=== PATIENT | male | born 1995 | race Caucasian/White ===

== ENCOUNTER 2019-01-06 21:14 | Inpatient (IN) | payer BC ==
[2019-01-06 21:19] VITALS: BMI 25.5
--- NOTE | 2019-01-06 21:20 | PDOC ---
Rapid Medical Evaluation Chief Complaint: Pain Time Seen by Provider: 01/06/19 21:18 Medical Evaluation: 01/06/19 21:18 I have performed a brief in-person evaluation of this patient. The patient presents with a chief complaint of: Sudden onset of RLQ abdominal pain at 6 today, nausea. NO urinary symptoms, no testicular pain. I have ordered the following: CBC, CMP, UA, line, labs The patient will proceed to the ED for further evaluation. Discharge Disposition - Diagnosis Abdominal pain - Referrals - Patient Instructions - Post Discharge Activity
[2019-01-06 22:09] LABS: URINE APPEARANCE CLEAR; URINE BILIRUBIN NEGATIVE (NEGATIVE); URINE COLOR YELLOW; URINE GLUCOSE (UA) NEGATIVE (NEGATIVE); URINE KETONE TRACE (NEGATIVE); URINE LEUK ESTERASE NEGATIVE (NEGATIVE); URINE NITRITE NEGATIVE (NEGATIVE); URINE PROTEIN NEGATIVE (NEGATIVE); URINE UROBILINOGEN 0.2 mg/dL (0.2-1.0)
[2019-01-06 22:10] LABS: BASO % 0.3 % (0-2.0); EOS % 0.8 % (0-4.5); HEMATOCRIT 43.8 % (35.4-49); HEMOGLOBIN 15.6 GM/dL (11.7-16.9); LYMPH % 19.5 % (8-40); MCH 29.5 pg (25.7-33.7); MCHC 35.5 g/dl (32.0-35.9); MEAN CELL VOLUME 83.1 fl (80-96); MEAN PLT VOLUME 8.1 fl (7.5-11.1); MONO % 6.1 % (3.8-10.2); NEUT % 73.3 % (42.8-82.8); PLATELET COUNT 288 K/MM3 (134-434); RBC 5.28 M/mm3 (4.00-5.60); RDW 12.7 % (11.9-15.9); WHITE BLOOD COUNT 14.2 K/mm3 (4.0-10.0)
--- NOTE | 2019-01-06 22:14 | PDOC ---
History of Present Illness - General Chief Complaint: Pain Stated Complaint: RT LOWER ABD PAIN Time Seen by Provider: 01/06/19 21:18 Past History - Past Medical History Allergies/Adverse Reactions: Allergies Allergy/AdvReac Type Severity Reaction Status Date / Time No Known Allergies Allergy Verified 01/06/19 21:19 Home Medications: Ambulatory Orders NK [No Known Home Medication] 01/06/19 COPD: No - Psycho Social/Smoking Cessation Hx Smoking History: Never smoked *Physical Exam - Vital Signs Last Vital Signs Temp Pulse Resp BP Pulse Ox 97.9 F 91 H 18 141/82 100 01/06/19 21:17 01/06/19 21:17 01/06/19 21:17 01/06/19 21:17 01/06/19 21:17 ED Treatment Course - LABORATORY CBC & Chemistry Diagram: 01/06/19 21:41 01/06/19 21:41 - ADDITIONAL ORDERS Additional order review: Laboratory Results 01/06/19 21:41 Urine Color Yellow Urine Appearance Clear Urine pH 7.0 Ur Specific [place] 1.026 Urine Protein Negative Urine Glucose (UA) Negative Urine Ketones Trace H Urine Blood Negative Urine Nitrite Negative Urine Bilirubin Negative Urine Urobilinogen 0.2 Ur Leukocyte Esterase Negative 01/06/19 21:41 RBC 5.28 MCV 83.1 MCHC 35.5 RDW 12.7 MPV 8.1 Neutrophils % 73.3 Lymphocytes % 19.5 Monocytes % 6.1 Eosinophils % 0.8 Basophils % 0.3 Medical Decision Making - Medical Decision Making HPI: 23yo M with no reported PMH presenting with RLQ abdominal pain. Pain is described as "gas" and "bloated" and rated 6/10 at rest and 9/10 upon certain movements. Patient has never had pain like this before. Reporting nausea but no vomiting. Has had lessened po intake today due to low appetite. Last bowel movement was around 6pm and was a normal formed brown stool without blood. Patient took an vjap-rre-myxhecr stomach relief medicine at 7pm with no relief of pain. Denies history of abdominal surgeries. Does not have urinary symptoms, testicular pain, or penile discharge. No fevers, chills, chest pain, or shortness of breath. Meds: none All: none PSH: removal of nasal polyp; hernia surgery as an ROS: Constitutional: no fever, no chills HEENT: no throat pain, no dysphagia Cardiovascular: no chest pain, no palpitations Respiratory: no cough, no shortness of breath Gastrointestinal: +abdominal pain, +nausea Genitourinary: no dysuria, no hematuria Musculoskeletal: no myalgia, no arthralgia Skin: no rash, no itching Neurologic: no headache, no weakness PE: General: Awake, alert, and fully oriented, in no acute distress Head: No signs of trauma Eyes: EOMI, sclera anicteric ENT: Moist mucus membranes Neck: Normal ROM, supple Lungs: Lungs clear, Normal breath sounds Cardio: Regular rhythm, S1 and S2 present Abdomen: Tender to palpation in RLQ. +Mcburney point, Soft, nondistended. + rebound. No guarding, no masses. No CVA tenderness : no genital rash or lesions, no testicular pain, normal cremasteric reflex bilaterally, no inguinal hernia noted Extremities: Normal range of motion, Distal pulses present SKIN: Warm, Dry, normal turgor Neurologic: Cranial nerves II through XII grossly intact. Normal speech ED Course/MDM: DDX including but not limited to appendicitis, constipation, gastroenteritis, gastritis, nephrolithiasis, testicular torsion [facility] 01/06/[facility] 22:14 CBC WBC 14.2 K/mm3 (4.0-10.0) H 01/06/19 21:41 RBC 5.28 M/mm3 (4.00-5.60) 01/06/19 21:41 Hgb 15.6 GM/dL (11.7-16.9) 01/06/19 21:41 Hct 43.8 % (35.4-49) 01/06/19 21:41 MCV 83.1 fl (80-96) 01/06/19 21:41 MCH 29.5 pg (25.7-33.7) 01/06/19 21:41 MCHC 35.5 g/dl (32.0-35.9) 01/06/19 21:41 RDW 12.7 % (11.9-15.9) 01/06/19 21:41 Plt Count 288 K/MM3 (134-434) 01/06/19 21:41 MPV 8.1 fl (7.5-11.1) 01/06/19 21:41 Absolute Neuts (auto) 10.4 K/mm3 (1.5-8.0) H 01/06/19 21:41 Neutrophils % 73.3 % (42.8-82.8) 01/06/19 21:41 Lymphocytes % 19.5 % (8-40) 01/06/19 21:41 Monocytes % 6.1 % (3.8-10.2) 01/06/19 21:41 Eosinophils % 0.8 % (0-4.5) 01/06/19 21:41 Basophils % 0.3 % (0-2.0) 01/06/19 21:41 Nucleated RBC % 0 % (0-0) 01/06/19 21:41 Leukocytosis CMP Sodium 139 mmol/L (136-145) 01/06/19 21:41 Potassium 3.4 mmol/L (3.5-5.1) L 01/06/19 21:41 Chloride 104 mmol/L (98-107) 01/06/19 21:41 Carbon Dioxide 27 mmol/L (21-32) 01/06/19 21:41 Anion Gap 8 MMOL/L (8-16) 01/06/19 21:41 BUN 17.6 mg/dL (7-18) 01/06/19 21:41 Creatinine 1.2 mg/dL (0.55-1.3) 01/06/19 21:41 Est GFR (CKD-EPI)AfAm 98.89 01/06/19 21:41 Est GFR (CKD-EPI)NonAf 85.32 01/06/19 21:41 Random Glucose 99 mg/dL (74-106) 01/06/19 21:41 Calcium 9.3 mg/dL (8.5-10.1) 01/06/19 21:41 Phosphorus 2.4 mg/dL (2.5-4.9) L 01/06/19 21:41 Magnesium 2.1 mg/dL (1.8-2.4) 01/06/19 21:41 Total Bilirubin 0.4 mg/dL (0.2-1) 01/06/19 21:41 AST 11 U/L (15-37) L 01/06/19 21:41 ALT 17 U/L (13-61) 01/06/19 21:41 Alkaline Phosphatase 82 U/L (45-117) 01/06/19 21:41 Total Protein 7.4 g/dl (6.4-8.2) 01/06/19 21:41 Albumin 4.5 g/dl (3.4-5.0) 01/06/19 21:41 Lipase 177 U/L (73-393) 01/06/19 21:41 Electrolytes unremakrable Creatinine normal No Transaminitis Lipase normal 01/06/19 23:14 Call from Imaging double end production grinder. Patient with early appendicitis. TS and Coags ordered Page to on-call surgeon, Dr. Donal Martinez, CT as read by imaging workforce management consultant: "FINDINGS: Lower lung tejada are clear. There are no gallstones identified. Liver, pancrease, spleen, adrenal glands are within normal. There are no renal stones, mass or obstructive uropathy. Abdominal aorta without AAA or dissection. IVC patent. There is no retroperitoneal hemorrhage or pathologic adenopathy. The appendix is edematous, enhancing it with subtle periappendiceal inflammatory changes indicative of early appendicitis. No evidence of bowel obstruction, ascites, abscess, free air or diverticulitis. Bladder grossly within normal There is no pelvic mass or pathologic adenopathy. Spine and bony pelvis without fracture or suspicious lesion. IMPRESSION: Early appendicitis without abscess or pneumoperitoneum" 01/07/19 00:[address] Ruggiero who wants patient to be admitted. To be evaluated tomorrow. We will start zosyn. Does not require cxr or ekg. 01/07/19 00:07 Patient states his pain is currently controlled NPO MB sent to hospitalist team 01/07/19 00:15 Awaiting callback Patient signed out to Dr. Alexander and night team 01/07/19 01:14 Discharge - Discharge Information Problems reviewed: Yes Clinical Impression/Diagnosis: Appendicitis Qualifiers: Appendicitis type: unspecified Qualified Code(s): K37 - Unspecified appendicitis Condition: Guarded - Admission Yes - Follow up/Referral - Patient Discharge Instructions - Post Discharge Activity
[2019-01-06] MEDS ORDERED: SODIUM CHLORIDE 1,000 ML IV STA (22:33)
[2019-01-06] MEDS ORDERED: ONDANSETRON 4 MG/2 ML VIAL IVPUSH ONE (22:33)
[2019-01-06] MEDS ORDERED: ACETAMINOPHEN 1000 MG/100 ML VIAL (NON FORMULARY) IVPB ONE (22:33)
--- NOTE | 2019-01-06 22:33 | PDOC ---
Attending Attestation - Resident Resident Name: Joanna Gill - ED Attending Attestation I have performed the following: I have examined & evaluated the patient, The case was reviewed & discussed with the resident, I agree w/resident's findings & plan - HPI HPI: 01/07/19 00:00 Pt comes with diffuse abd pain; pain is radiating and moving to the RLQ. - Physicial Exam PE: 01/07/19 00:00 Agree with resident exam. Pt has RLQ pain with rebound and guarding We are concerned about appendicitis. - Medical Decision Making 01/07/19 00:06 Patient Name: RONY CRUZ THIS IS A PRELIMINARY REPORT FROM IMAGING COMPUTER HARDWARE TECHNICIAN DATE OF SERVICE: 2019-01-06 23:16:04 IMAGES: [id number] EXAM: CT ABDOMEN AND PELVIS WITH IV CONTRAST. REASON FOR EXAM: Pain RLQ COMPARISON: None FINDINGS: Lower lung tej[place] are clear. There are no gallstones identified. Liver, pancrease, spleen, adrenal glands are within normal. There are no renal stones, mass or obstructive uropathy. Abdominal aorta without AAA or dissection. IVC patent. There is no retroperitoneal hemorrhage or pathologic adenopathy. The appendix is edematous, enhancing it with subtle periappendiceal inflammatory changes indicative of early appendicitis. No evidence of bowel obstruction, ascites, abscess, free air or diverticulitis. Bladder grossly within normal There is no pelvic mass or pathologic adenopathy. Spine and bony pelvis without fracture or suspicious lesion. IMPRESSION: Early appendicitis without abscess or pneumoperitoneum. Surgery weed control inspector with be called and pt will be admitted to the hospitalist. We will start antibiotics.
[2019-01-06 22:37] LABS: ALBUMIN 4.5 g/dl (3.4-5.0); BILIRUBIN,TOTAL 0.4 mg/dL (0.2-1); BLOOD UREA NITROGEN 17.6 mg/dL (7-18); CALCIUM 9.3 mg/dL (8.5-10.1); CREATININE 1.2 mg/dL (0.55-1.3); MAGNESIUM 2.1 mg/dL (1.8-2.4); PHOSPHOROUS 2.4 mg/dL (2.5-4.9); POTASSIUM 3.4 mmol/L (3.5-5.1); TOT PROT 7.4 g/dl (6.4-8.2)
[2019-01-06] MEDS ORDERED: ACETAMINOPHEN INJECTION 100 ML IVPB ONE (22:53)
[2019-01-06] MEDS ORDERED: ONDANSETRON 4 MG/2 ML VIAL ONE (22:53)
[2019-01-07] MEDS ORDERED: PIPERACILLIN/TAZOB 4.5 GM 4.5 GM in DEXTROSE 5%-WATER 100 ML IVPB ONE (00:08)
[2019-01-07] MEDS ORDERED: PIPERACILLIN/TAZOB 4.5 GM 4.5 GM/100 ML BAG IVPB ONE (00:31)
--- NOTE | 2019-01-07 00:40 | PN ---
Teaching Attending Note Name of Resident: José Luis Pardo ATTENDING PHYSICIAN STATEMENT I saw and evaluated the patient. I reviewed the resident's note and discussed the case with the resident. I agree with the resident's findings and plan as documented. SUBJECTIVE: 23yo man, previously healthy presents with a chief complaint of sudden onset of RLQ abdominal pain at 6pm 01/06, nausea. No urinary symptoms. S/p zosyn, abd/ pelvis ct scan in er. OBJECTIVE: Last Vital Signs Temp Pulse Resp BP Pulse Ox 97.9 F 91 H 18 141/82 100 01/06/19 21:17 01/06/19 21:17 01/06/19 21:17 01/06/19 21:17 01/06/19 21:17 gen -nontoxic heent -moist mucous membranes neck supple cv s1+s2+rrr chest clear abd- soft, bs+ nondistenderd rlq tenderness, no rebound tenderness ext - no pedal edema Abnormal Lab Results 01/06/19 01/06/19 01/06/19 21:41 21:41 21:41 WBC 14.2 H Absolute Neuts (auto) 10.4 H Potassium 3.4 L Phosphorus 2.4 L AST 11 L Urine Ketones Trace H imaging reviewed EXAM: CT ABDOMEN AND PELVIS WITH IV CONTRAST. REASON FOR EXAM: Pain RLQ COMPARISON: None FINDINGS: Lower lung tej[place] are clear. There are no gallstones identified. Liver, pancrease, spleen, adrenal glands are within normal. There are no renal stones, mass or obstructive uropathy. Abdominal aorta without AAA or dissection. IVC patent. There is no retroperitoneal hemorrhage or pathologic adenopathy. The appendix is edematous, enhancing it with subtle periappendiceal inflammatory changes indicative of early appendicitis. No evidence of bowel obstruction, ascites, abscess, free air or diverticulitis. Bladder grossly within normal There is no pelvic mass or pathologic adenopathy. Spine and bony pelvis without fracture or suspicious lesion. IMPRESSION: Early appendicitis without abscess or pneumoperitoneum. ASSESSMENT AND PLAN: Sepsis secondary to early appendicitis without abscess or pneumoperitoneum, leukocytosis+ borderline tachy -med/surg -npo -ekg -iv fluid hydration -ceftriaxone/flagyl -morphine for pain control -zofran for nausea or vomiting -surgery consult -pt/ptt, type and cross -supplement phosphate and K+ -dvt ppx
[2019-01-07 00:41] LABS: INR 1.17 (0.83-1.09); PROTHROMBIN TIME (PATIENT) 13.8 SEC (9.7-13.0)
[2019-01-07] MEDS ORDERED: MORPHINE SULFATE 2 MG/ML VIAL IVPUSH PRN (02:37)
[2019-01-07] MEDS ORDERED: ACETAMINOPHEN 325 MG TABLET (FP) PO PRN ×2 (02:42→10:49)
[2019-01-07] MEDS ORDERED: DEXTROSE 5%-NORMAL SALINE 1,000 ML IV SCH (02:45)
[2019-01-07] MEDS ORDERED: PIPERACILLIN/TAZOBACTAM 3.375 GM VIAL IVPB ONE ×3 (04:02→18:00)
[2019-01-07] MEDS ORDERED: DEXTROSE 5%-WATER - 50 ML IVPB ONE ×3 (04:03→18:00)
[2019-01-07] MEDS: PIPERACILLIN/TAZOB 3.375 GM 3.375 GM in DEXTROSE 5%-WATER - 50 ML IVPB SCH ×4 (04:19→18:59)
--- NOTE | 2019-01-07 07:46 | HP ---
CHIEF COMPLAINT: RLQ pain PCP: HISTORY OF PRESENT ILLNESS: 23M w/ no signifcant PMH presents to [facility] for complaint of new-onset RLQ pain occuring at ~18:30 while watching the [employer]. Pain started as a vague pressure then became stabbing and crampy. Had nausea, no vomiting. Low appetite throughout day. Endorse subjective fever. No diarrhea ER course was notable for: (1) HR 91 (2) WBC 14.2 (3) CT A/P w/ edematous appendix, periappendiceal inflammation (4) ofirmev + zofran (5) Surg([facility]) consult (6) zosyn Recent Travel: none PAST MEDICAL HISTORY: none PAST SURGICAL HISTORY: nasal polyp removal, infant IHR Social History: Smoking: denies Alcohol: social Drugs: denies Allergies No Known Allergies Allergy (Verified 01/06/19 21:19) HOME MEDICATIONS: Home Medications Medication Instructions Recorded NK [No Known Home Medication] 01/06/19 REVIEW OF SYSTEMS CONSTITUTIONAL: fever, anorexia Absent: chills, diaphoresis, generalized weakness, malaise, weight change HEENT: Absent: rhinorrhea, nasal congestion, throat pain, throat swelling, difficulty swallowing, mouth swelling, visual changes CARDIOVASCULAR: Absent: chest pain, syncope, palpitations, irregular heart rate, lightheadedness , peripheral edema RESPIRATORY: Absent: cough, shortness of breath, dyspnea with exertion, orthopnea, wheezing, stridor, hemoptysis GASTROINTESTINAL: abd pain, nausea Absent: abdominal distension, vomiting, diarrhea, constipation, melena, hematochezia GENITOURINARY: Absent: dysuria, frequency, urgency, hesitancy, hematuria, flank pain, genital pain MUSCULOSKELETAL: Absent: myalgia, arthralgia, joint swelling, back pain, neck pain SKIN: Absent: rash, itching, pallor PHYSICAL EXAMINATION Vital Signs - 24 hr 01/06/19 01/07/19 01/07/19 21:17 00:17 01:00 Temperature 97.9 F 98.2 F Pulse Rate 91 H 75 Pulse Rate [ Left Radial] Respiratory 18 20 Rate Blood Pressure 141/82 137/72 Blood Pressure [Left Arm] O2 Sat by Pulse 100 100 100 Oximetry (%) 01/07/19 01:05 Temperature 98.0 F Pulse Rate Pulse Rate [ 86 Left Radial] Respiratory 20 Rate Blood Pressure Blood Pressure 138/79 [Left Arm] O2 Sat by Pulse 100 Oximetry (%) GENERAL: Awake, alert, and fully oriented, in no acute distress. HEAD: NC/AT EYES: sclera anicteric, conjunctiva clear EARS, NOSE, THROAT: Ears normal, nares patent. Moist mucous membranes. NECK: Normal range of motion, supple without lymphadenopathy, JVD, or masses. LUNGS: Breath sounds equal, clear to auscultation bilaterally. No wheezes, and no crackles. No accessory muscle use. HEART: Regular rate and rhythm, normal S1 and S2 without murmur, rub or gallop. ABDOMEN: Soft, ND, +McBurney's, neg Rovsing, neg rebound MUSCULOSKELETAL: Normal range of motion at all joints. No bony deformities or tenderness. UPPER EXTREMITIES: 2+ pulses, warm, well-perfused. No cyanosis. LOWER EXTREMITIES: 2+ pulses, warm, well-perfused. No calf tenderness. No peripheral edema. NEUROLOGICAL: Normal speech. PSYCHIATRIC: Cooperative. Good eye contact. Appropriate mood and affect. Laboratory Results - last 24 hr 01/06/19 01/06/19 01/06/19 21:41 21:41 21:41 WBC 14.2 H RBC 5.28 Hgb 15.6 Hct 43.8 MCV 83.1 MCH 29.5 MCHC 35.5 RDW 12.7 Plt Count 288 MPV 8.1 Absolute Neuts (auto) 10.4 H Neutrophils % 73.3 Lymphocytes % 19.5 Monocytes % 6.1 Eosinophils % 0.8 Basophils % 0.3 Nucleated RBC % 0 PT with INR INR PTT (Actin FS) Sodium 139 Potassium 3.4 L Chloride 104 Carbon Dioxide 27 Anion Gap 8 BUN 17.6 Creatinine 1.2 Est GFR (CKD-EPI)AfAm 98.89 Est GFR (CKD-EPI)NonAf 85.32 Random Glucose 99 Calcium 9.3 Phosphorus 2.4 L Magnesium 2.1 Total Bilirubin 0.4 AST 11 L ALT 17 Alkaline Phosphatase 82 Total Protein 7.4 Albumin 4.5 Lipase 177 Urine Color Yellow Urine Appearance Clear Urine pH 7.0 Ur Specific [place] 1.026 Urine Protein Negative Urine Glucose (UA) Negative Urine Ketones Trace H Urine Blood Negative Urine Nitrite Negative Urine Bilirubin Negative Urine Urobilinogen 0.2 Ur Leukocyte Esterase Negative Blood Type Antibody Screen 1001/07/19 01/07/19 00:03 00:03 00:03 WBC RBC Hgb Hct MCV MCH MCHC RDW Plt Count MPV Absolute Neuts (auto) Neutrophils % Lymphocytes % Monocytes % Eosinophils % Basophils % Nucleated RBC % PT with INR 13.80 H INR 1.17 H PTT (Actin FS) 33.6 Sodium Potassium Chloride Carbon Dioxide Anion Gap BUN Creatinine Est GFR (CKD-EPI)AfAm Est GFR (CKD-EPI)NonAf Random Glucose Calcium Phosphorus Magnesium Total Bilirubin AST ALT Alkaline Phosphatase Total Protein Albumin Lipase Urine Color Urine Appearance Urine pH Ur Specific [place] Urine Protein Urine Glucose (UA) Urine Ketones Urine Blood Urine Nitrite Urine Bilirubin Urine Urobilinogen Ur Leukocyte Esterase Blood Type B POSITIVE Antibody Screen Negative ASSESSMENT/PLAN: 23M w/ no significant PMH present with severe RLQ abd pain, CT findings suggestive of an early appendicitis. #sepsis 2/2 appendicitis > CT A/P: edematous appendix, periappendiceal inflammation > sepsis: HR 91, WBC 14.2 - NPO - mIVF - zosyn - T&S pending - coag pending - Consult Surg([facility]) FEN: - NPO - D5NS @125 DVT prophylaxis -SCDs Family Medical History Family Hx Cancer: Mother (liver cancer) Family Hx Cardiac Disorders: Grandfather (paternal) (HTN) Visit type - Emergency Visit Emergency Visit: Yes ED Registration Date: 01/07/19 Care time: The patient presented to the Emergency Department on the above date and was hospitalized for further evaluation of their emergent condition. - New Patient This patient is new to me today: Yes Date on this admission: 01/07/19 - Critical Care Critical Care patient: No ATTENDING PHYSICIAN STATEMENT I saw and evaluated the patient. I reviewed the resident's note and discussed the case with the resident. I agree with the resident's findings and plan as documented. SUBJECTIVE: OBJECTIVE: ASSESSMENT AND PLAN:
[2019-01-07 08:00] LABS: INR 1.22 (0.83-1.09); PROTHROMBIN TIME (PATIENT) 14.4 SEC (9.7-13.0)
[2019-01-07 08:03] LABS: ACTIVATED PTT 34.4 SECONDS (25.2-36.5)
[2019-01-07] MEDS ORDERED: BUPIVACAINE HCL/PF 0.5% (5 MG/ML) 30 ML VIAL IJ ONE (09:13)
[2019-01-07] MEDS ORDERED: ONDANSETRON 4 MG/2 ML VIAL ONE (09:30)
[2019-01-07] MEDS ORDERED: LIDOCAINE HCL/PF 2% SDV 5ML VIAL ONE (09:30)
[2019-01-07] MEDS ORDERED: DEXAMETHASONE SOD PHOSPHATE 4 MG/1 ML VIAL ONE (09:30)
[2019-01-07] MEDS ORDERED: KETOROLAC TROMETHAMINE 30 MG/1 ML VIAL ONE (09:30)
[2019-01-07] MEDS ORDERED: PROPOFOL 20 ML ONE ×3 (09:31)
[2019-01-07] MEDS ORDERED: ROCURONIUM BROMIDE 50 MG/5 ML SYRINGE ONE (09:31)
[2019-01-07] MEDS ORDERED: SUCCINYLCHOLINE CHLORIDE 200 MG/10 ML SYRINGE ONE (09:31)
[2019-01-07] MEDS ORDERED: fentaNYL CITRATE 250 MCG/5 ML VIAL ONE (09:31)
[2019-01-07] MEDS ORDERED: NEOSTIGMINE METHYLSULFATE 0.5 MG/1 ML - 10 ML MDV ONE (10:17)
[2019-01-07] MEDS ORDERED: GLYCOPYRROLATE 0.2 MG/1 ML VIAL ONE ×2 (10:17)
--- NOTE | 2019-01-07 10:17 | CONS ---
DATE OF CONSULTATION: 01/07/2019 REASON FOR CONSULTATION: Acute appendicitis. BRIEF HISTORY: This is a 23-year-old male who presented to [facility] with 1-day history of lower abdominal pain. He had a mildly elevated white blood cell count and a CAT scan consistent with acute appendicitis. He was started on intravenous antibiotics, admitted to the hospital, and request was made for a surgical evaluation. PAST MEDICAL HISTORY: Negative. PAST SURGICAL HISTORY: Nil. SOCIAL HISTORY: Negative for alcohol. Negative for tobacco. FAMILY HISTORY: Negative for malignancy in the immediate family. ALLERGIES: He has no known drug allergies. REVIEW OF SYSTEMS: General: Denies fatigue or malaise. Cardiac: Denies chest pain or palpitations. Respiratory: Denies shortness of breath or wheeze. Gastrointestinal: As in HPI. Denies nausea, denies vomiting, denies diarrhea, denies blood in his stool. Genitourinary: Denies dysuria. Musculoskeletal: Denies joint pain. Psychiatric: Denies anxiety, depression, or hearing voices. PHYSICAL EXAMINATION: General: This is a well-developed, well-nourished 23-year-old male in no distress. Vital Signs: He is afebrile. HEENT: His head is normocephalic. His sclerae anicteric. Neck: Supple. Chest: Clear. Abdomen: Soft. He has localized right lower quadrant tenderness with rebound. He has no surgical scars, although he states he has a history of an inguinal hernia as a child. Extremities: No edema. On review of his laboratory, his white blood cell count is 14,000. His chemistries show a low potassium of 3.4, phosphorous of 2.4. Review of his imaging, he has a CAT scan of his abdomen and pelvis, which per [facility] reading is early appendicitis as relayed to me by the emergency room physician. Brief history, this is a 23-year-old male with right lower quadrant pain, peritoneal findings right lower quadrant, leukocytosis, and CAT scan evidence of acute appendicitis/early appendicitis. Clinically, this is acute appendicitis. I agree with admission. I agree with Zosyn antibiotic to cover E. coli and other gram negative as well as anerobic elvira and enteric elvira. Patient has been offered medical management versus surgery and prefers surgery. Risks and benefits of surgery have been explained to the patient in detail. These are including, but not limited to, the possibility of conversion to open, the possibility of injury to viscera or bladder, the possibility of blood loss requiring blood transfusion, the possibility of future obstruction, possibility of future hernia, possibility of staple line dehiscence, possibility of requiring a partial cholecystectomy plus a multitude of medical risks, including, but not limited to, cardiac, neurologic, pulmonary, and vascular complications, even . Patient understands these risks and is agreeable to surgery. DO KAREN TAVAREZ/[id number]
--- NOTE | 2019-01-07 10:39 | OP ---
Operative Note - Note: Operative Date: 01/07/19 Pre-Operative Diagnosis: acute appendicitis Operation: laparoscopic appendectomy, lavage Findings: thickened, inflamed, non perforated appendix Post-Operative Diagnosis: Same as Pre-op Surgeon: Paolo Ruggiero Anesthesiologist/CLEANING TECHNICIAN: Paolo Kent Specimens Removed: appendix Estimated Blood Loss (mls): 10 Operative Report Dictated: Yes
[2019-01-07] MEDS ORDERED: morphine SULFATE 4 MG/ML VIAL IVPB PRN (10:40)
[2019-01-07] MEDS ORDERED: ONDANSETRON 4 MG/2 ML VIAL IVPUSH PRN ×2 (10:40→10:41)
[2019-01-07] MEDS ORDERED: PROMETHAZINE HCL 25 MG/1 ML VIAL IVPB PRN (10:41)
[2019-01-07] MEDS ORDERED: oxyCODONE HCL 5 MG TABLET PO PRN (10:41)
[2019-01-07] MEDS: DEXTROSE 5%-NORMAL SALINE 1,000 ML IV SCH ×2 (11:30→19:03)
--- NOTE | 2019-01-07 13:46 | PN ---
Physical Exam: SUBJECTIVE: Patient seen and examined at the bedside. denies any discomfort. s/ p appendectomy. only verbalized intermittent soreness. tolerating diet. OBJECTIVE: Patient is a 23 year old male with no pmhx who presented to [facility] with acute RLQ abodminal pain, found to have an acute appendicitis and is now s/p appendectomy. Vital Signs Period Temp Pulse Resp BP Sys/Pitts Pulse Ox Last 24 Hr 97.9 F-98.6 F 63-96 12-20 111-141/53-82 95-100 GENERAL: The patient is awake, alert, and fully oriented, in no acute distress. HEAD: Normal with no signs of trauma. EYES: PERRL, extraocular movements intact, sclera anicteric, conjunctiva clear. No ptosis. ENT: Ears normal, nares patent, oropharynx clear without exudates, moist mucous membranes. NECK: Trachea midline, full range of motion, supple. LUNGS: Breath sounds equal, clear to auscultation bilaterally, no wheezes, no crackles, no accessory muscle use. HEART: Regular rate and rhythm, S1, S2 without murmur, rub or gallop. ABDOMEN: surgical incisions c/d/i, soft abdomen, sore only, tolerating diet. EXTREMITIES: no edema. NEUROLOGICAL: Normal speech, gait not observed. PSYCH: Normal mood, normal affect. Laboratory Results - last 24 hr 01/06/19 01/06/19 01/06/19 21:41 21:41 21:41 WBC 14.2 H RBC 5.28 Hgb 15.6 Hct 43.8 MCV 83.1 MCH 29.5 MCHC 35.5 RDW 12.7 Plt Count 288 MPV 8.1 Absolute Neuts (auto) 10.4 H Neutrophils % 73.3 Lymphocytes % 19.5 Monocytes % 6.1 Eosinophils % 0.8 Basophils % 0.3 Nucleated RBC % 0 PT with INR INR PTT (Actin FS) Sodium 139 Potassium 3.4 L Chloride 104 Carbon Dioxide 27 Anion Gap 8 BUN 17.6 Creatinine 1.2 Est GFR (CKD-EPI)AfAm 98.89 Est GFR (CKD-EPI)NonAf 85.32 Random Glucose 99 Calcium 9.3 Phosphorus 2.4 L Magnesium 2.1 Total Bilirubin 0.4 AST 11 L ALT 17 Alkaline Phosphatase 82 Total Protein 7.4 Albumin 4.5 Lipase 177 Urine Color Yellow Urine Appearance Clear Urine pH 7.0 Ur Specific [place] 1.026 Urine Protein Negative Urine Glucose (UA) Negative Urine Ketones Trace H Urine Blood Negative Urine Nitrite Negative Urine Bilirubin Negative Urine Urobilinogen 0.2 Ur Leukocyte Esterase Negative Blood Type Antibody Screen 01/06/19 01/07/19 01/07/19 21:41 00:03 00:03 WBC RBC Hgb Hct MCV MCH MCHC RDW Plt Count MPV Absolute Neuts (auto) Neutrophils % Lymphocytes % Monocytes % Eosinophils % Basophils % Nucleated RBC % PT with INR INR PTT (Actin FS) 33.6 Sodium Potassium Chloride Carbon Dioxide Anion Gap BUN Creatinine Est GFR (CKD-EPI)AfAm Est GFR (CKD-EPI)NonAf Random Glucose Calcium Phosphorus Magnesium Total Bilirubin AST ALT Alkaline Phosphatase Total Protein Albumin Lipase Urine Color Urine Appearance Urine pH Ur Specific [place] Urine Protein Urine Glucose (UA) Urine Ketones Urine Blood Urine Nitrite Urine Bilirubin Urine Urobilinogen Ur Leukocyte Esterase Blood Type B POSITIVE B POSITIVE Antibody Screen Negative 01/07/19 01/07/19 00:03 06:00 WBC RBC Hgb Hct MCV MCH MCHC RDW Plt Count MPV Absolute Neuts (auto) Neutrophils % Lymphocytes % Monocytes % Eosinophils % Basophils % Nucleated RBC % PT with INR 13.80 H 14.40 H INR 1.17 H 1.22 H PTT (Actin FS) 34.4 Sodium Potassium Chloride Carbon Dioxide Anion Gap BUN Creatinine Est GFR (CKD-EPI)AfAm Est GFR (CKD-EPI)NonAf Random Glucose Calcium Phosphorus Magnesium Total Bilirubin AST ALT Alkaline Phosphatase Total Protein Albumin Lipase Urine Color Urine Appearance Urine pH Ur Specific [place] Urine Protein Urine Glucose (UA) Urine Ketones Urine Blood Urine Nitrite Urine Bilirubin Urine Urobilinogen Ur Leukocyte Esterase Blood Type Antibody Screen Active Medications Generic Name Dose Route Start Last Admin Trade Name Freq PRN Reason Stop Dose Admin Acetaminophen 650 mg 01/07/19 10:49 Tylenol - PO Q4H PRN PAIN LEVEL 1-5 Enoxaparin Sodium 40 mg 01/08/19 10:00 Lovenox - SQ DAILY RYNE Fentanyl 50 mcg 01/07/19 10:41 01/07/19 10:55 Sublimaze Injection - IVPUSH 50 mcg [id number] PRN Administration PAIN-PACU ORDER X 4 DOSES ONLY Dextrose/Sodium Chloride 1,000 mls @ 125 mls/hr 01/07/19 10:49 01/07/19 11:30 D5-Ns - IV 0 mls ASDIR RYNE Administration Piperacillin Sod/Tazobactam 50 mls @ 100 mls/hr 01/07/19 21:00 Sod 3.375 gm/ Dextrose IVPB Q6H-IV RYNE Protocol Piperacillin Sod/Tazobactam 50 mls @ 100 mls/hr 01/07/19 15:00 Sod 3.375 gm/ Dextrose IVPB 01/07/19 15:29 Q6H-IV RYNE Protocol Morphine Sulfate 8 mg 01/07/19 10:40 Morphine Sulfate IVPB Q3H PRN PAIN LEVEL 7 - 10 Ondansetron HCl 4 mg 01/07/19 10:40 Zofran Injection IVPUSH Q6H PRN NAUSEA Oxycodone HCl 7.5 mg 01/07/19 10:40 Roxicodone - PO Q4H PRN PAIN LEVEL 4 - 6 Oxycodone HCl 10 mg 01/07/19 10:41 Roxicodone - PO 01/08/19 10:40 Q4H PRN PAIN LEVEL 6-10 Pantoprazole Sodium 40 mg 01/08/19 10:00 Protonix Iv IVPUSH DAILY RYNE Promethazine HCl 12.5 mg 01/07/19 10:41 Phenergan Injection - IVPB Q6H PRN NAUSEA-FOR RESCUE AFTER 15 MIN ASSESSMENT/PLAN: Problem List - Problems (1) Appendicitis Assessment/Plan: patient is s/p laparoscopic appendectomy, lavage. thickened inflamed no perforated appendix on zosyn post surgical care: early ambulation, diet, pain management, incentive spirometer d/c once cleared by surgery Code(s): K37 - UNSPECIFIED APPENDICITIS Qualifiers: Appendicitis type: unspecified Qualified Code(s): K37 - Unspecified appendicitis (2) Leukocytosis Assessment/Plan: wbc 14.2. on zosyn. id following. Code(s): D72.829 - ELEVATED WHITE BLOOD CELL COUNT, UNSPECIFIED (3) Prophylactic measure Assessment/Plan: post surgery care Code(s): Z29.9 - ENCOUNTER FOR PROPHYLACTIC MEASURES, UNSPECIFIED Visit type - Emergency Visit Emergency Visit: Yes ED Registration Date: 01/07/19 Care time: The patient presented to the Emergency Department on the above date and was hospitalized for further evaluation of their emergent condition. - New Patient This patient is new to me today: Yes Date on this admission: 01/07/19 - Critical Care Critical Care patient: No - Discharge Referral Referred to [facility] Med P.C.: No
[2019-01-07] MEDS: oxyCODONE HCL 5 MG TABLET PO PRN ×2 (14:18→21:32)
[2019-01-07] MEDS ORDERED: PIPERACILLIN/TAZOB 3.375 GM 3.375 GM in DEXTROSE 5%-WATER - 50 ML IVPB SCH ×2 (15:00→21:00)
[2019-01-07] MEDS ORDERED: PT OWN MED DRAWER 7, Y5N ONE (21:13)
[2019-01-08] MEDS ORDERED: PIPERACILLIN/TAZOBACTAM 3.375 GM VIAL IVPB ONE ×2 (00:57→10:23)
[2019-01-08] MEDS ORDERED: DEXTROSE 5%-WATER - 50 ML IVPB ONE ×2 (00:57→10:24)
[2019-01-08] MEDS: PIPERACILLIN/TAZOB 3.375 GM 3.375 GM in DEXTROSE 5%-WATER - 50 ML IVPB SCH ×2 (01:07→10:29)
--- NOTE | 2019-01-08 09:59 | PN ---
Progress Note (short form) - Note Progress Note: Anesthesiologist post op note, POD#1, S/P Acute, Lap appendectomy under GA. Pat seen and examined. VSS. Ambulating. C/O sore throat. Reassured. No apparent post anesthesia complications.
[2019-01-08] MEDS ORDERED: PANTOPRAZOLE SODIUM 40 MG VIAL IVPUSH SCH (10:00)
[2019-01-08] MEDS ORDERED: ENOXAPARIN NA (PORCINE) 40 MG/0.4 ML DISP.SYRIN SQ SCH (10:00)
--- NOTE | 2019-01-08 10:02 | CON.ID ---
Consult Consult Specialty:: infectious diseases Referred by:: Imani Reason for Consultation:: ac appendicitis - History of Present Illness Chief Complaint: abd pain History of Present Illness: 23M w/ no signifcant PMH was admitted for RLQ pain occuring at ~18:30 while watching the [employer]. Pain started as a vague pressure then became stabbing and crampy. Had nausea, no vomiting. Low appetite throughout day. Endorse subjective fever. No diarrhea patient was worked up and found to ahve appendicitis. surgery saw the patient and was taken to the or and patient underwent appendectomy - History Source History Provided By: Patient Limitations to Obtaining History: No Limitations - Smoking History Smoking history: Never smoked Home Medications - Allergies Allergies/Adverse Reactions: Allergies Allergy/AdvReac Type Severity Reaction Status Date / Time No Known Allergies Allergy Verified 01/06/19 21:19 - Home Medications Home Medications: Ambulatory Orders NK [No Known Home Medication] 01/06/19 Review of Systems - Review of Systems Constitutional: reports: No Symptoms Eyes: reports: No Symptoms HENT: reports: No Symptoms Neck: reports: No Symptoms Cardiovascular: reports: No Symptoms Respiratory: reports: No Symptoms Gastrointestinal: reports: Abdominal Pain Genitourinary: reports: No Symptoms Musculoskeletal: reports: No Symptoms Integumentary: reports: No Symptoms Neurological: reports: No Symptoms Endocrine: reports: No Symptoms Hematology/Lymphatic: reports: No Symptoms Psychiatric: reports: No Symptoms Physical Exam Vital Signs: Vital Signs Temperature 98.2 F 01/08/19 06:00 Pulse Rate 76 01/08/19 06:00 Respiratory Rate 20 01/08/19 06:00 Blood Pressure 124/76 01/08/19 06:00 O2 Sat by Pulse Oximetry (%) 99 01/07/19 21:00 Constitutional: Yes: Well Nourished, No Distress, Calm Eyes: Yes: Conjunctiva Clear Neck: Yes: Supple, Trachea Midline Cardiovascular: Yes: Regular Rate and Rhythm Respiratory: Yes: Regular, CTA Bilaterally Gastrointestinal: Yes: Soft, Hypoactive Bowel Sounds Musculoskeletal: Yes: WNL Extremities: Yes: WNL Neurological: Yes: Alert, Oriented Psychiatric: Yes: Alert, Oriented Labs: CBC, BMP 01/06/19 21:41 01/06/19 21:41 Assessment/Plan ASSESSMENT/PLAN: Problem List - Problems (1) Appendicitis Code(s): K37 - UNSPECIFIED APPENDICITIS Qualifiers: Appendicitis type: unspecified Qualified Code(s): K37 - Unspecified appendicitis (2) Leukocytosis Code(s): D72.829 - ELEVATED WHITE BLOOD CELL COUNT, UNSPECIFIED plan doing well no issues patient tolerating diet if surgery clears patient does not need abx
[2019-01-08 10:39] LABS: BASO % 0.5 % (0-2.0); EOS % 0.6 % (0-4.5); HEMATOCRIT 41.5 % (35.4-49); HEMOGLOBIN 14.1 GM/dL (11.7-16.9); LYMPH % 24.3 % (8-40); MCH 29.2 pg (25.7-33.7); MCHC 34.1 g/dl (32.0-35.9); MEAN CELL VOLUME 85.7 fl (80-96); MEAN PLT VOLUME 8.6 fl (7.5-11.1); MONO % 8.5 % (3.8-10.2); NEUT % 66.1 % (42.8-82.8); PLATELET COUNT 245 K/MM3 (134-434); RBC 4.84 M/mm3 (4.00-5.60); RDW 12.7 % (11.9-15.9); WHITE BLOOD COUNT 7.6 K/mm3 (4.0-10.0)
[2019-01-08 11:13] LABS: ALBUMIN 3.5 g/dl (3.4-5.0); BILIRUBIN,TOTAL 0.5 mg/dL (0.2-1); BLOOD UREA NITROGEN 7.4 mg/dL (7-18); CALCIUM 9.1 mg/dL (8.5-10.1); CREATININE 1.1 mg/dL (0.55-1.3); POTASSIUM 3.8 mmol/L (3.5-5.1); TOT PROT 6.2 g/dl (6.4-8.2)
--- NOTE | 2019-01-08 12:33 | DS ---
Physical Exam: SUBJECTIVE: Patient seen and examined at the bedside. tolerating diet. had one episode of nausea yesterday, now resolved. had egg sandwich family brought in from home, and he ate it without any nausea. OBJECTIVE: discharge home wbc stable patient to f/u outpatient with surgery Patient is a 23 year old male with no pmhx who presented to [facility] with acute RLQ abodminal pain, found to have an acute appendicitis and is now s/p appendectomy. Vital Signs Period Temp Pulse Resp BP Sys/Pitts Pulse Ox Last 24 Hr 97.5 F-98.6 F 75-88 18-20 105-139/47-76 99 PHYSICAL EXAM GENERAL: The patient is awake, alert, and fully oriented, in no acute distress. HEAD: Normal with no signs of trauma. EYES: PERRL, extraocular movements intact, sclera anicteric, conjunctiva clear. No ptosis. ENT: Ears normal, nares patent, oropharynx clear without exudates, moist mucous membranes. NECK: Trachea midline, full range of motion, supple. LUNGS: Breath sounds equal, clear to auscultation bilaterally, no wheezes, no crackles, no accessory muscle use. HEART: Regular rate and rhythm, S1, S2 without murmur, rub or gallop. ABDOMEN: surgical incisions c/d/i, soft abdomen, sore only, tolerating diet. EXTREMITIES: no edema. NEUROLOGICAL: Normal speech, gait not observed. PSYCH: Normal mood, normal affect. LABS Laboratory Results - last 24 hr 01/08/19 01/08/19 10:20 10:20 WBC 7.6 RBC 4.84 Hgb 14.1 Hct 41.5 MCV 85.7 MCH 29.2 MCHC 34.1 RDW 12.7 Plt Count 245 MPV 8.6 Absolute Neuts (auto) 5.0 Neutrophils % 66.1 Lymphocytes % 24.3 D Monocytes % 8.5 Eosinophils % 0.6 Basophils % 0.5 Nucleated RBC % 0 Sodium 144 Potassium 3.8 Chloride 108 H Carbon Dioxide 29 Anion Gap 7 L BUN 7.4 Creatinine 1.1 Est GFR (CKD-EPI)AfAm 109.86 Est GFR (CKD-EPI)NonAf 94.79 Random Glucose 85 Calcium 9.1 Magnesium 2.0 Total Bilirubin 0.5 AST 35 ALT 61 Alkaline Phosphatase 71 Total Protein 6.2 L Albumin 3.5 HOSPITAL COURSE: Date of Admission:01/07/19 Date of Discharge: 01/08/19 Minutes to complete discharge: 45 Discharge Summary Problems reviewed: Yes Reason For Visit: APPENDICITIS Current Active Problems Appendicitis (Acute) Leukocytosis (Acute) Prophylactic measure (Acute) Condition: Stable - Instructions Diet, Activity, Other Instructions: Post Operative Instructions Physical activity Resume your normal everyday activity as tolerated no heavy lifting or exercise until seen by your surgeon. You may walk unlimited amounts of and climb stairs. You may resume driving the car when you feel safe and comfortable behind the wheel. Wound care If you have a bandage, leave it on, and keep dry for 48 - 72 hours. After that time discard the outer bandage. If there are tapes on the skin under the outer bandage, leave them in place. They will peel off in the next 7 to 10 days. Do Not peel them off. You may shower 2 days after surgery. If there are tapes present on the skin, they can get wet. Diet There are no dietary restrictions. Eat healthy, high-fiber foods. Drink 6 to 8 glasses of liquid each day. This will assist in keeping your bowels are regular. Pain management You may take Tylenol or acetaminophen. Any pain prescription medication ordered should be taken as prescribed for moderate to severe pain. Call for any of the following: Severe pain not relieved by medication Fever of 101 or higher Excessive bleeding or drainage on dressing Inability to urinate Call the office for a post operative appointment in 7 - 10 days. Referrals: ON STAFF,NOT [Primary Care Provider] - Paolo Ruggiero MD [Staff Physician] - Disposition: HOME - Home Medications Comprehensive Discharge Medication List: Ambulatory Orders NK [No Known Home Medication] 01/06/19 Problem List - Problems (1) Appendicitis Assessment/Plan: POD#1 patient is s/p laparoscopic appendectomy, lavage. thickened inflamed no perforated appendix no pain, no nausea, no vomiting, no fevers and tolerating diet he is voiding freeing follow up with surgery as an outpatient. instructions written on d/c Code(s): K37 - UNSPECIFIED APPENDICITIS Qualifiers: Appendicitis type: unspecified Qualified Code(s): K37 - Unspecified appendicitis (2) Leukocytosis Assessment/Plan: resolved Code(s): D72.829 - ELEVATED WHITE BLOOD CELL COUNT, UNSPECIFIED (3) Prophylactic measure Assessment/Plan: discharge home Code(s): Z29.9 - ENCOUNTER FOR PROPHYLACTIC MEASURES, UNSPECIFIED This patient is new to me today: No Emergency Visit: Yes ED Registration Date: 01/07/19 Care time: The patient presented to the Emergency Department on the above date and was hospitalized for further evaluation of their emergent condition. Critical Care patient: No - Discharge Referral Referred to [facility] Med P.C.: No
[2019-01-08 14:49] VITALS: BP 122/74; PULSE 70; TEMP 98
--- NOTE | 2019-01-09 15:53 | OP ---
DATE OF OPERATION: 01/07/2019 PREOPERATIVE DIAGNOSIS: Acute appendicitis. POSTOPERATIVE DIAGNOSIS: Acute appendicitis. PROCEDURE: Laparoscopic appendectomy and lavage. SURGEON: Paolo Ruggiero DO SCHOOL LABORATORY TECHNICIAN: None. ANESTHESIOLOGIST: Paolo Kent MD (general) BLOOD LOSS: Minimal. DRAINS: None. SPECIMEN: Appendix. DISPOSITION: To recovery in stable condition. COMPLICATIONS: None. BRIEF HISTORY: This is a 23-year-old male who presented to [facility] with signs and symptoms of acute appendicitis. He was admitted, started on antibiotic and presents now for surgery. PROCEDURE: The patient was placed in the supine position. After general anesthesia was initiated the abdomen was prepped and draped in sterile fashion. A vertical incision was made infraumbilical with a scalpel used to go through skin and subcutaneous tissue. The fascia was then lifted with a Emigdio clamp and incised vertically. The peritoneum was entered bluntly. Next a 0 Vicryl stitch was placed across the fascial defect and used to secure the Eda trocar. Pneumoperitoneum was then created followed by insertion of a 5-mm 30-degree laparoscope. Two 5-mm trocars were then placed, 1 suprapubic, 1 left lower quadrant. Attention was turned to the right lower quadrant. Omentum was adhesed to the inguinal hernia probably from a previous hernia repair as a child. This was taken down with the LigaSure device in order to enable viewing. The cecum was identified as well as the appendix that was thickened and inflamed consistent with acute appendicitis. A window was made in the space. The LigaSure device was used to divide the mesoappendix with multiple welds. The Endo-UMANG multifire vascular load stapler was used to divide the appendix in 1 firing. The staple line was inspected. It was intact. There was no bleeding, no breaks, no sign of ischemia. At this point the appendix was placed into a specimen retrieval bag, removed through the infraumbilical trocar site and sent to Pathology marked as specimen. A limited lavage was done and all return was clear. Trocars were removed under direct visualization. No bleeding was noted. The fascia at the infraumbilical trocar site was closed with multiple interrupted 0 Vicryl sutures. There was perhaps a small ventral hernia above this. The 3 skin incisions were closed with Biosyn and Dermabond dressing was placed. Overall the patient tolerated the procedure well with no complications. DO KAREN TAVAREZ/[id number] MTDD
--- NOTE | 2019-01-10 17:26 | PATH ---
Surgical Pathology Report Patient Name: RONY CRUZ Med. Rec. #: [id number] /Age/Gender: 1995 (Age: 23) / M Account: [id number] Location: [facility] MED/SURG Taken: 01/07/2019 Received: 01/09/2019 Reported: 01/10/2019 Physicians: Paolo Ruggiero M.D. Specimen(s) Received APPENDIX Clinical History Appendicitis Final Diagnosis APPENDIX, APPENDECTOMY: ACUTE APPENDICITIS AND PERIAPPENDICITIS. Electronically Signed Enid Mensah M.D. Gross Description Received in formalin, labeled "appendix," is a 5.5 cm. in length vermiform appendix with a stapled margin of resection and moderate attached fat. The serosa is avitia-strange with attached exudate. Sectioning reveals a focally hemorrhagic lumen. The wall of the appendix averages 0.1 cm. in thickness. Machine Heel Seat Fitter sections are submitted in one cassette. /01/09/2019 saudi/01/09/2019
== END 2019-01-08 14:51 | disposition home or self-care (01) | DRG 343 ==
LOC: JER 21:14 → JERBED 01-07 00:17 → J8W 01-07 02:24
PROVIDERS: ADMIT Internal Medicine; ATTEND Nurse Practitioner Family
PROC: 0DTJ4ZZ Resection of Appendix, Percutaneous Endoscopic Approach (ICD-10-PCS; principal; 2019-01-07 09:00)
DX: K35.80 Unspecified acute appendicitis (principal); D72.829 Elevated white blood cell count, unspecified
CPT/HCPCS: 36415; 74177-TC; 80053; 81003; 83690; 83735; 84100; 85025; 85610; 85730; 86850; 86900; 86901; 87086; 88304-TC; 94760; 99284-25; J0131; J7030

== ENCOUNTER 2019-10-18 22:42 | Emergency (ER) | payer BC ==
[2019-10-18 23:03] VITALS: BMI 25.1
[2019-10-18] MEDS ORDERED: DIPHTH,PERTUSS(ACELL),TET 0.5 ML DISP.SYRIN IM ONE ×2 (23:41→23:55)
--- NOTE | 2019-10-18 23:44 | PDOC ---
History of Present Illness - General Chief Complaint: Laceration Stated Complaint: laceration on finger Time Seen by Provider: 10/18/19 23:14 History Source: Patient Exam Limitations: No Limitations - History of Present Illness Initial Comments: 10/18/19 23:42 HISTORY OF PRESENT ILLNESS: 23-year-old male denies medical history presents emergency department for evaluation of laceration to the right hand on a broken glass bowl. Patient reports the ball fell when he went to catch it it shattered lacerating the right hand. Patient is right-hand dominant. No recent travel or sick contacts. PAST MEDICAL HISTORY: Denies past medical history SURGICAL HISTORY: Denies ALLERGIES: No known drug allergies REVIEW OF SYSTEMS General/Constitutional: Denies fever or chills. Denies weakness, weight change. HEENT: Denies change in vision. Denies ear pain or discharge. Denies sore throat. Cardiovascular: Denies chest pain or shortness of breath. Respiratory: Denies cough, wheezing, or hemoptysis. Gastrointestinal: Denies nausea, vomiting, diarrhea or constipation. Denies rectal bleeding. Genitourinary: Denies dysuria, frequency, or change in urination. Musculoskeletal: Denies joint or muscle swelling or pain. Denies neck or back pain. Skin and breasts: See HPI Neurologic: Denies headache, vertigo, loss of consciousness, or loss of sensation. Psychiatric: Denies depression or anxiety. Endocrine: Denies increased thirst. Denies abnormal weight change. Hematologic/Lymphatic: Denies anemia, easy bleeding, or history of blood clots. Allergic/Immunologic: Denies hives or skin allergy. Denies latex allergy. PHYSICAL EXAM General Appearance: Well-appearing, appropriately dressed. No apparent distress, no intoxication. Musculoskeletal/Extremities: Normal inspection. FROM of all extremities, normal capillary refill. Pelvis Stable. No CVA tenderness. No tenderness to extremities, pedal edema, swelling, erythema or deformity. Integumentary: Approximate 3 cm linear laceration present to the lateral volar aspect of the right hand. Wound is clean. No obvious foreign bodies present. Patient able to open and close fist without difficulty. Hemostasis achieved miguel or to arrival Past History - Medical History Allergies/Adverse Reactions: Allergies Allergy/AdvReac Type Severity Reaction Status Date / Time No Known Allergies Allergy Verified 10/18/19 23:02 Home Medications: Ambulatory Orders NK [No Known Home Medication] 01/06/19 COPD: No - Psycho-Social/Smoking History Smoking History: Never smoked Have you smoked in the past 12 months: No Information on smoking cessation initiated: No - Substance Abuse Hx (Audit-C & DAST Scrn) How often the patient has a drink containing alcohol: Never Score: In Men: 4 or > Positive; In Women: 3 or > Positive: 0 Screen Result (Pos requires Nsg. Audit-10AR): Negative In the last yr the pt used illegal drug/Rx for NonMed reason: No Score: Yes response is considered Positive: 0 Screen Result (Positive result requires Nsg. DAST-10): Negative *Physical Exam - Vital Signs Last Vital Signs Temp Pulse Resp BP Pulse Ox 97.1 F L 83 20 133/73 100 10/18/19 23:02 10/18/19 23:02 10/18/19 23:02 10/18/19 23:02 10/18/19 23:02 Procedures - Consent Consent obtained: Verbal, From Patient - Laceration/Wound Repair Right Lateral Hand Wound Length: 2.6 to 5.0 cm Wound Explored: clean Wound's Depth, Shape: superficial, linear Irrigated w/ Saline: Yes Betadine Prep: Yes Anesthesia: 1% Lidocaine Amount of Anesthetic (ccs): 5 Wound Debrided: minimal Wound Repaired With: Sutures Suture Size/Type: 5:0, nylon Number of Sutures: 6 Layer Closure: No Sterile Dressing Applied: Yes Splint Applied: No Progress: 10/18/19 23:42 Patient tolerated well Medical Decision Making - Medical Decision Making 10/18/19 23:44 A/P: 24-year-old male with laceration to right hand immediately prior to arrival Patient is right-hand dominant Approximate 3 cm linear superficial laceration present to the vulvar lateral aspect of the right hands proximal to the fifth phalange. Able to open and close fist without difficulty. Boostrix Laceration repair-see procedure note for details Discharge home Discharge - Discharge Information Problems reviewed: Yes Clinical Impression/Diagnosis: Laceration Condition: Stable Disposition: HOME - Admission No - Follow up/Referral - Patient Discharge Instructions Additional Instructions: Your tetanus immunization was updated today. This is good for the next 10 years. Keep wound clean and dry Avoid strenuous activity/exercise to create a hot or sweaty environment until sutures are removed Reapply bacitracin ointment 2 times a day until sutures are removed Return to emergency Department or private physician in 7-10 days for suture removal May use Tylenol or Motrin for pain relief Return immediately to emergency department for redness, swelling, pain, or signs of infection - Post Discharge Activity
[2019-10-19 00:13] VITALS: BP 129/73; PULSE 67; TEMP 98
== END 2019-10-19 | disposition home or self-care (01) ==
LOC: JER 22:42
PROC: 0HQFXZZ Repair Right Hand Skin, External Approach (ICD-10-PCS; principal; 2019-10-18)
PROC: 3E0234Z Introduction of Serum, Toxoid and Vaccine into Muscle, Percutaneous Approach (ICD-10-PCS; 2019-10-18)
DX: S61.411A Laceration without foreign body of right hand, initial encounter (principal)
CPT/HCPCS: 90715; 99284-25